=== PATIENT | male | born 1980 | race African-American/Black ===

== ENCOUNTER 2020-04-26 02:30 | Emergency (ER) | payer OTHER ==
[2020-04-26 02:37] VITALS: BP 155/101
[2020-04-26] MEDS ORDERED: LIDOCAINE 1% INJ-PF (10 MG/ML) 30 ML SDV IM ONE (03:10)
[2020-04-26] MEDS ORDERED: AZITHROMYCIN 250 MG TABLET PO ONE (03:10)
[2020-04-26] MEDS ORDERED: CEFTRIAXONE INJ 250 MG VIAL IM ONE (03:10)
[2020-04-26] MEDS ORDERED: EMTRICITABINE/TENOFOVIR 200-300 MG TAB (3 TAB/ER DISP) PO PRN (03:11)
[2020-04-26] MEDS ORDERED: ONDANSETRON ODT 4 MG TAB (6 TAB/ER DISP) PO PRN (03:11)
[2020-04-26] MEDS ORDERED: RALTEGRAVIR 400 MG TAB (6 TAB/ER DISP) PO PRN (03:11)
--- NOTE | 2020-04-26 03:11 | ER Document Report ---
HPI - HPI Time Seen by Provider: 04/26/20 03:01 Pain Level: Denies Notes: 39-year-old male patient presents emergency department with concern for possible exposure. Patient reports he had unprotected sexual intercourse with a stranger sanjuanita. He states when he was leaving her hotel room he noticed that there was hypodermic needles in the trash can. He states he asked her if they were hers and she admitted that she has an IV drug user. Patient denies any symptoms. Patient reports he is otherwise healthy, has no medical conditions and does not take any medications. All of his immunizations are up-to-date. - ROS ROS below otherwise negative: Yes Past Medical History - General Information source: Patient - Social History Smoking Status: Former Smoker Chew tobacco use (# tins/day): No Frequency of alcohol use: Social Drug Abuse: None Family History: Reviewed & Not Pertinent - Medical History Medical History: Negative Surgical Hx: Negative - Immunizations Immunizations up to date: Yes Vertical Provider Document - CONSTITUTIONAL Notes: PHYSICAL EXAMINATION: GENERAL: Well-appearing, well-nourished and in no acute distress. HEAD: Atraumatic, normocephalic. EYES: Pupils equal round extraocular movements intact, conjunctiva are normal. ENT: Nares patent NECK: Normal range of motion LUNGS: No respiratory distress Musculoskeletal: Normal range of motion NEUROLOGICAL: Normal speech, normal gait. PSYCH: Normal mood, normal affect. SKIN: Warm, Dry, normal turgor, no rashes or lesions noted. Course - Re-evaluation Re-evalutation: Patient treated empirically for chlamydia and gonorrhea. He was also started on HIV prophylaxis per his request. He will follow-up with his medical provider tomorrow for lab test initiation. - Vital Signs Vital signs: Temp Pulse Resp BP Pulse Ox 98.7 F 92 16 155/101 H 99 04/26/20 03:03 04/26/20 02:36 04/26/20 02:36 04/26/20 02:36 04/26/20 02:36 Discharge - Discharge Clinical Impression: Possible exposure to STD, possible hiv exposure Condition: Stable Disposition: HOME, SELF-CARE Additional Instructions: Please follow-up with the health department or your clinic as you will need to have lab work drawn frequently for the next several months. Bring the bottles of medication with you so that they know what you are taking. Return to the emergency department with any new or worsening complaints. You were treated in the emergency department for possible exposure to HIV, chlamydia and gonorrhea. Prescriptions: Raltegravir Potassium [Isentress 400 mg Tablet] 400 mg PO BID 28 Days #56 tablet Emtricitabine/Tenofovir [Truvada Tablet] 1 each PO DAILY #28 tablet Ondansetron [Zofran Odt 4 mg Tablet] 1 - 2 tab PO Q4H PRN #30 tab.rapdis PRN Reason: For Nausea/Vomiting
[2020-04-26] MEDS ORDERED: LIDOCAINE 2% VISCOUS SOLN 15 ML UDCUP PO ONE (03:24)
== END 2020-04-26 03:41 | disposition home or self-care (01) ==
LOC: ER 02:30
DX: Z20.2 Contact with and (suspected) exposure to infections with a predominantly sexual mode of transmission (principal); Z20.6 Contact with and (suspected) exposure to human immunodeficiency virus [HIV]; Z87.891 Personal history of nicotine dependence
CPT/HCPCS: 99283; 96372; J3490 ×2; J0696